=== PATIENT | male | born 1955 | race Caucasian/White ===

== ENCOUNTER 2016-06-01 07:33 | Emergency (ER) | payer OTHER ==
[~2016-06-01] VITALS: Ht 170.2 cm; Wt 130.6 kg
[~2016-06-01 07:33] MED LIST: KFL/250 PO; PRCUNK PO
[2016-06-01 07:37] VITALS: TEMP 36.7; Ht 170.2 cm; Wt 130.6 kg
--- NOTE | 2016-06-01 08:06 | EMERGENCY ROOM VISIT NOTE ---
History First contact with patient: 07:40 Chief Complaint: OTHER COMPLAINT Stated Complaint: LARGE BUMP UNDER ARM History of Present Illness The patient is a 61 year old male who presents to the Emergency Room with complaints of right axillary lump. The patient states he has had a lump in the right axilla for one year. He states that it started out as pea size and has occasionally gotten larger. He states that he saw his family doctor a year ago. The patient states that over the weekend it became significantly more swollen, red and tender. The patient rates his discomfort a 5/10. The patient states he has had sweats but denies any fevers. The patient also states that he has had ongoing low back pain, pain that radiates into the right leg, urinary incontinence and weakness in the right leg. He states that occasionally his right leg will give out. He states that those symptoms have been ongoing for the last 2 months. He has not had an MRI of his back. He has not had any further evaluation of his back or leg. Review of Systems A 10 system review of systems was completed with positives and pertinent negatives listed in the HPI. Past Medical/Surgical History Medical Problems: (1) Hypertension Social History Smoking Status: Never Smoker Alcohol Use: none Occupation Status: employed Current/Historical Medications Scheduled Cephalexin Monohydrate (Keflex), 500 MG PO QID Metoprolol Succ (Toprol Xl) (Toprol-Xl), 50 MG PO DAILY Prednisone (Prednisone Tab), 0 PO DAILY Sulfa/Trimethoprim (Bactrim Ds 800MG/160MG), 1 TAB PO BID Scheduled PRN Oxycodone/Acetaminophen 5MG/325MG (Percocet 5MG/325MG), 1 TAB PO Q4H PRN for Pain Allergies Coded Allergies: No Known Allergies (Unverified , 06/01/16) Physical Exam Vital Signs Date Time Temp Pulse Resp B/P Pulse Ox O2 Delivery O2 Flow Rate FiO2 06/01/16 11:28 75 18 145/92 95 06/01/16 11:01 75 18 145/92 95 Room Air 06/01/16 08:57 76 18 139/89 95 Room Air 06/01/16 07:37 36.7 91 18 168/99 97 Room Air Physical Exam VITALS: Vitals are noted on the nurse's note and reviewed by myself. Vital signs stable. The patient is afebrile. GENERAL: This is a 61-year-old male, in no acute distress, nondiaphoretic, well- developed well-nourished. SKIN: There is an area of erythema, fluctuance and pointing to the right axilla. It measures approximately 3 cm in diameter. There is tenderness to palpation. There is no tenting of the skin. Capillary reflex less than 2 seconds. HEAD: Normocephalic atraumatic. EARS: External ears are normal in appearance. EYES: Pupils equal round and reactive to light and accommodation. Conjunctivae without injection, sclerae without icterus. Extraocular movements intact. NOSE: Patent, turbinates without inflammation or discharge. MOUTH: Mucous membranes moist. Tonsils are not enlarged. Pharynx without erythema or exudate. Uvula midline. Airway patent. Tongue does not deviate. NECK: Supple without nuchal rigidity. No lymphadenopathy. No thyromegaly. Cervical spine is nontender. No JVD. HEART: Regular rate and rhythm without murmurs gallops or rubs. LUNGS: Clear to auscultation bilaterally without wheezes, rales or rhonchi. No retractions or accessory muscle use. MUSCULOSKELETAL: No muscle atrophy, erythema, or edema noted. Full range of motion without joint tenderness in all extremities. No tenderness to palpation. Normal gait. Strength 5/5 throughout. NEURO: Patient was alert and oriented to person place and time. Deep tendon reflexes 2+ throughout. No focal neurological deficits. Medical Decision & Procedures ER Provider Diagnostic Interpretation: [~ rep ct add3]] MRI OF THE LUMBAR SPINE WITHOUT CONTRAST CLINICAL HISTORY: Urinary incontinence. Right leg weakness. COMPARISON STUDY: No previous studies for comparison. TECHNIQUE: Utilizing a 1.5 Saritha magnet and dedicated coil, multiplanar, multiecho imaging of the lumbar spine was performed without IV contrast. FINDINGS: For purposes of numbering on this exam, the L5-S1 disc space is assigned to axial image 23 of 26. Vertebral body heights are maintained. There is no suspicious marrow replacement. A few T1 and T2 hyperintense lesions represent hemangiomas. The largest is a 1.6 cm L1 vertebral body lesion. There is no intracanalicular mass or fluid collection. The conus terminates at the upper L1 level. Paravertebral soft tissues are unremarkable. L1-2: The central canal and neural foramen are patent. L2-3: There is mild facet arthrosis. There is a small central annular tear. There is a tiny central disc protrusion with minimal inferior subligamentous administration. The central canal and neural foramen are patent. L3-4: There is facet arthrosis. There is minimal disc bulge with a tiny central disc protrusion. The central canal and neural foramen are patent. L4-5: There is disc bulge with a central annular tear. There is facet arthrosis. The central canal is patent. There is mild narrowing of the neural foramen. L5-S1: There is facet arthrosis. There is a disc bulge with tiny central disc protrusion. The central canal or patent is patent. There is severe right and moderate to severe left neural foraminal stenosis. IMPRESSION: 1. Mild multilevel degenerative disc disease with small disc bulges and small disc protrusions. No significant central canal stenosis. 2. Moderate to severe multilevel neural foraminal stenosis, most pronounced at the right L5-S1 neural foramen. [~ rep ct add3]] RIGHT AXILLARY ULTRASOUND CLINICAL HISTORY: Right axillary mass COMPARISON STUDY: No previous studies for comparison. FINDINGS: There is a 21 x 18 x 21 mm hypoechoic right axillary mass. There is mild surrounding hypervascularity. This lesion is essentially avascular. Likely diagnostic considerations include a necrotic lymph node versus an abscess. Clinical follow-up is advocated. Fine-needle aspiration biopsy could be obtained in follow-up as deemed clinically necessary. IMPRESSION: 21 x 18 x 21 mm hypoechoic right axillary mass. Diagnostic considerations include an abscess versus a necrotic lymph node. Clinical follow-up is advocated. Fine-needle aspiration biopsy could be obtained in follow-up as deemed clinically necessary Laboratory Results 06/01/16 09:48 Red Blood Count 5.29, Mean Corpuscular Volume 82.8, Mean Corpuscular Hemoglobin 28.5, Mean Corpuscular Hemoglobin Concent 34.5, Mean Platelet Volume 9.4, Neutrophils (%) (Auto) 64.0, Lymphocytes (%) (Auto) 21.9, Monocytes (%) (Auto) 10.7, Eosinophils (%) (Auto) 2.8, Basophils (%) (Auto) 0.5, Neutrophils # (Auto ) 5.85, Lymphocytes # (Auto) 2.00, Monocytes # (Auto) 0.98, Eosinophils # (Auto ) 0.26, Basophils # (Auto) 0.05 06/01/16 09:48 Test 06/01/16 09:48 White Blood Count 9.15 K/uL (4.8-10.8) Red Blood Count 5.29 M/uL (4.7-6.1) Hemoglobin 15.1 g/dL (14.0-18.0) Hematocrit 43.8 % (42-52) Mean Corpuscular Volume 82.8 fL (80-100) Mean Corpuscular Hemoglobin 28.5 pg (25-34) Mean Corpuscular Hemoglobin Concent 34.5 g/dl (32-36) Platelet Count 211 K/uL (130-400) Mean Platelet Volume 9.4 fL (7.4-10.4) Neutrophils (%) (Auto) 64.0 % Lymphocytes (%) (Auto) 21.9 % Monocytes (%) (Auto) 10.7 % Eosinophils (%) (Auto) 2.8 % Basophils (%) (Auto) 0.5 % Neutrophils # (Auto) 5.85 K/uL (1.4-6.5) Lymphocytes # (Auto) 2.00 K/uL (1.2-3.4) Monocytes # (Auto) 0.98 K/uL (0.11-0.59) Eosinophils # (Auto) 0.26 K/uL (0-0.5) Basophils # (Auto) 0.05 K/uL (0-0.2) RDW Standard Deviation 43.2 fL (36.4-46.3) RDW Coefficient of Variation 14.3 % (11.5-14.5) Immature Granulocyte % (Auto) 0.1 % Immature Granulocyte # (Auto) 0.01 K/uL (0.00-0.02) Anion Gap 9.0 mmol/L (3-11) Est Creatinine Clear Calc Drug Dose 108.8 ml/min Estimated GFR () 101.1 Estimated GFR (Non- 87.3 BUN/Creatinine Ratio 19.1 (10-20) Calcium Level 8.1 mg/dl (8.5-10.1) Total Bilirubin 0.5 mg/dl (0.2-1) Aspartate Amino Transf (AST/SGOT) 18 U/L (15-37) Alanine Aminotransferase (ALT/SGPT) 25 U/L (12-78) Alkaline Phosphatase 69 U/L (45-117) Total Protein 7.0 gm/dl (6.4-8.2) Albumin 3.3 gm/dl (3.4-5.0) Globulin 3.7 gm/dl (2.5-4.0) Albumin/Globulin Ratio 0.9 (0.9-2) Medications Administered Medications (Trade) Dose Ordered Sig/Stefanie Route Start Time Stop Time Status Last Admin Dose Admin Dexamethasone Sodium Phosphate (Decadron Inj) 10 mg NOW ONCE IM 06/01/16 11:00 06/01/16 11:01 DC 06/01/16 11:15 10 MG Procedure I examined the patient. After saline and Betadine cleansing and 3 mL of 1% buffered lidocaine anesthesia, the abscess was incised with a number 11 scalpel blade. A small amount of purulent material was expressed. A swab was obtained for culture. The patient tolerated the procedure well. ED Course The patient was seen and examined. Previous visits were reviewed. The patient does not have a fever or leukocytosis. He does not have any significant electrolyte abnormalities. The patient presents with a lump to the right axilla. It is concerning the patient states the lump has been there for the last 1 year and has steadily gotten larger. He states that over the weekend it has now become red, swollen and tender. It has not drained. An ultrasound of the area was obtained. This reveals a possible necrotic lymph node or possibly an abscess. A fine-needle aspiration could be considered. The area was opened minimally as above. There is a small amount of purulent drainage. The wound was not explored deeply and was not packed. A culture was obtained. The patient was advised to see his family doctor for further evaluation and management and for possible scheduling of fine-needle aspiration. He was placed on Bactrim and Keflex and given a prescription for pain medication. Additionally, the patient has been complaining of urinary incontinence, right leg pain and weakness and low back pain. The patient was neurovascularly and neurologically intact on exam. However, given the symptoms and MRI of the lumbar spine was obtained. The patient does have spinal stenosis. There is no obvious cauda equina. The patient was given IM Decadron and a prescription for prednisone. He should contact his family doctor to schedule a follow-up appointment for further evaluation and management of his low back pain. The patient was also seen and examined by who agrees with the assessment and treatment plan. The patient should return with any worsening symptoms Medical Decision The differential diagnosis includes lymphoma, necrotic lymph node, cellulitis, abscess, hidradenitis suppurativa, Lumbar strain, degenerative disc disease, spondylolisthesis, herniated disc, spinal stenosis, osteoporosis, fracture, cauda equina syndrome, neoplasm, infection, inflammatory arthritis, among others. [place] Drug Monitoring Program Search Results: patient reviewed within database, no issues identified Impression Primary Impression: Axillary abscess Additional Impressions: Lumbar radiculopathy Back pain Departure Information Dispostion Home / Self-Care Condition GOOD Prescriptions Oxycodone/Acetaminophen 5MG/325MG (PERCOCET 5MG/325MG) Tab 1 TAB PO Q4H Y for Pain, #18 TAB For Initial Treatment Prov: Sania Gomez PA-C 06/01/16 Cephalexin Monohydrate (KEFLEX) 500 Mg Cap 500 MG PO QID for 10 Days, #40 CAP Prov: Sania Gomez PA-C 06/01/16 Sulfa/Trimethoprim (Bactrim Ds 800MG/160MG) Tab 1 TAB PO BID for 10 Days, #20 TAB Prov: Sania Gomez PA-C 06/01/16 Prednisone (Prednisone Tab) 20 Mg Tab 0 PO DAILY, #18 TAB 3 DAILY FOR 3 DAYS, THEN 2 DAILY FOR 3 DAYS, THEN 1 DAILY FOR 3 DAYS. Prov: Sania Gomez PA-C 06/01/16 Referrals Justin Nieto M.D. ([facility]) (PCP) Patient Instructions Back Pain - [facility], ED Abscess IandD, My [facility] Additional Instructions Prednisone as prescribed to help with inflammation in the low back Percocet 1-2 tablet every 4-6 hours as needed for worse pain. No driving or alcohol use with Percocet and do not take with Tylenol. Contact your family doctor to schedule a follow-up appointment for further evaluation and management of the back pain, leg pain and urinary symptoms Bactrim and Keflex as prescribed, until finished for the infection in the right armpit Return or recheck with your family doctor in 24-48 hours for a recheck You may need a fine needle aspiration biopsy if the lump persists in the right armpit Return sooner with any concerning or worsening symptoms Problem Qualifiers
--- NOTE | 2016-06-01 08:42 | DIAGNOSTIC IMAGING REPORT ---
RIGHT AXILLARY ULTRASOUND CLINICAL HISTORY: Right axillary mass COMPARISON STUDY: No previous studies for comparison. FINDINGS: There is a 21 x 18 x 21 mm hypoechoic right axillary mass. There is mild surrounding hypervascularity. This lesion is essentially avascular. Likely diagnostic considerations include a necrotic lymph node versus an abscess. Clinical follow-up is advocated. Fine-needle aspiration biopsy could be obtained in follow-up as deemed clinically necessary. IMPRESSION: 21 x 18 x 21 mm hypoechoic right axillary mass. Diagnostic considerations include an abscess versus a necrotic lymph node. Clinical follow-up is advocated. Fine-needle aspiration biopsy could be obtained in follow-up as deemed clinically necessary Electronically signed by: Nadir Rose M.D. 06/01/2016 8:40 AM Dictated Date/Time: 06/01/2016 8:38 AM
--- NOTE | 2016-06-01 10:02 | DIAGNOSTIC IMAGING REPORT ---
MRI OF THE LUMBAR SPINE WITHOUT CONTRAST CLINICAL HISTORY: Urinary incontinence. Right leg weakness. COMPARISON STUDY: No previous studies for comparison. TECHNIQUE: Utilizing a 1.5 Saritha magnet and dedicated coil, multiplanar, multiecho imaging of the lumbar spine was performed without IV contrast. FINDINGS: For purposes of numbering on this exam, the L5-S1 disc space is assigned to axial image 23 of 26. Vertebral body heights are maintained. There is no suspicious marrow replacement. A few T1 and T2 hyperintense lesions represent hemangiomas. The largest is a 1.6 cm L1 vertebral body lesion. There is no intracanalicular mass or fluid collection. The conus terminates at the upper L1 level. Paravertebral soft tissues are unremarkable. L1-2: The central canal and neural foramen are patent. L2-3: There is mild facet arthrosis. There is a small central annular tear. There is a tiny central disc protrusion with minimal inferior subligamentous administration. The central canal and neural foramen are patent. L3-4: There is facet arthrosis. There is minimal disc bulge with a tiny central disc protrusion. The central canal and neural foramen are patent. L4-5: There is disc bulge with a central annular tear. There is facet arthrosis. The central canal is patent. There is mild narrowing of the neural foramen. L5-S1: There is facet arthrosis. There is a disc bulge with tiny central disc protrusion. The central canal or patent is patent. There is severe right and moderate to severe left neural foraminal stenosis. IMPRESSION: 1. Mild multilevel degenerative disc disease with small disc bulges and small disc protrusions. No significant central canal stenosis. 2. Moderate to severe multilevel neural foraminal stenosis, most pronounced at the right L5-S1 neural foramen. Electronically signed by: Omi De Leon M.D. 06/01/2016 10:01 AM Dictated Date/Time: 06/01/2016 9:41 AM
[2016-06-01 10:11] LABS: BASO % 0.5 %; BASO ABS # 0.05 K/uL (0-0.2); COMPLETE YES; EOS % 2.8 %; HEMATOCRIT 43.8 % (42-52); IG% 0.1 %; LYMPH % 21.9 %; MEAN CELL VOLUME 82.8 fL (80-100); MEAN CORPUSCULAR HEMOGLOBIN 28.5 pg (25-34); MEAN CORPUSCULAR HGB CONC 34.5 g/dl (32-36); MEAN PLATELET VOLUME 9.4 fL (7.4-10.4); MONO % 10.7 %; PLATELET COUNT 211 K/uL (130-400); RED BLOOD COUNT 5.29 M/uL (4.7-6.1); WHITE BLOOD COUNT 9.15 K/uL (4.8-10.8)
[2016-06-01] MEDS ORDERED: XYLOCAINE 1%/SOD BICARB 20 ML VIAL INFIL ONE (10:15)
--- NOTE | 2016-06-01 10:16 | EMERGENCY ROOM VISIT NOTE ---
ED Visit Note First contact with patient: 07:40 61-year-old male was swelling in his right axilla was fully evaluated by Valeria Gomez PA-C. Please see her note. I also independently evaluated the patient. This appears to be inflamed lymph nodes. This he may have hiraadenitis suppurtiva. A small incision was made cultures were obtained. The patient was placed on antibiotics. Patient will require follow-up with his family physician. The patient may need a biopsy if this does not resolve the problem.
[2016-06-01 10:28] LABS: BUN/CREATININE RATIO 19.1 (10-20); CALCIUM 8.1 mg/dl (8.5-10.1); CREATININE 0.95 mg/dl (0.60-1.40)
[2016-06-01 10:30] LABS: ALB/GLOB RATIO 0.9 (0.9-2)
[2016-06-01] MEDS ORDERED: PRED20TA2 PO (10:59)
[2016-06-01] MEDS ORDERED: OXYC-57 PO (10:59)
[2016-06-01] MEDS ORDERED: SULF800T23 PO (10:59)
[2016-06-01] MEDS ORDERED: CEPH500C2 PO (10:59)
[2016-06-01] MEDS ORDERED: DEXAMETHASONE SOD INJ 10 MG/ML VIAL IM ONE (11:00)
[2016-06-01 11:28] VITALS: BP 145/92; PULSE 75; O2SAT 95
[2016-10-14] MEDS ORDERED: METO50TA7 PO (10:55)
== END 2016-06-01 11:28 | disposition home or self-care (01) ==
LOC: C.EDB 07:35 → C.EDA 11:28
DX: L02.411 Cutaneous abscess of right axilla (principal); M54.16 Radiculopathy, lumbar region; M54.9 Dorsalgia, unspecified; I10 Essential (primary) hypertension

== ENCOUNTER 2016-10-14 14:08 | Emergency (ER) | payer OTHER ==
[~2016-10-14] VITALS: Ht 170.2 cm; Wt 120.0 kg
[~2016-10-14 14:08] MED LIST changes: -KFL/250 PO; +METO50TA7 PO; +OXYC-57 PO; -PRCUNK PO; +PRED20TA2 PO
[2016-10-14 14:12] VITALS: TEMP 36.6; Ht 170.2 cm; Wt 120.0 kg
[2016-10-14] MEDS ORDERED: ACET-1256 PO (15:22)
[2016-10-14] MEDS ORDERED: IBUP-103 PO (15:22)
[2016-10-14] MEDS ORDERED: NAPR1TAB9 PO (15:22)
--- NOTE | 2016-10-14 15:40 | EMERGENCY ROOM VISIT NOTE ---
History First contact with patient: 15:03 Chief Complaint: LEG PAIN,LEG INJURY Stated Complaint: SWELLING/PAIN IN LWR RT LEG History of Present Illness The patient is a 61 year old male who presents to the Emergency Room with complaints of right leg pain, swelling, weakness. Patient states several months ago he started to notice some weakness in his right leg, states he was evaluated in the emergency department for this and had an MRI of his lower back that showed some "problems." Patient states over the past month he has developed severe pain from his knee to his foot in the front of his [place]. The pain is so severe that he has difficulty walking on the leg at times. Patient also states the weakness in his leg has become more severe that he is unable to lift the leg to get in and out of a vehicle or go up and down stairs and has to lead with his left leg. For the past week he has noticed a numb/tingling feeling in the sole of his right foot, especially the heel that is also new. He does note increased urgency and occasional urinary incontinence which has been going on for several months. He denies any back pain. He denies any posterior calf or knee pain. He states he developed some swelling in the leg throughout the day, that goes down if he elevates the leg. He denies any past medical history and does not take any medications on a daily basis, but does note a history of an irregular heartbeat. He denies any headaches, vision changes, neck or back pain, chest pain, shortness of breath, abdominal pain, vomiting or diarrhea, dysuria or hematuria. Review of Systems A complete 10 point review of systems was reviewed with the patient with pertinent positives and negatives as per history of present illness. All else were negative. Past Medical/Surgical History Medical Problems: (1) Hypertension Social History Smoking Status: Never Smoker Alcohol Use: none Occupation Status: employed Current/Historical Medications Scheduled Acetaminophen (Tylenol), 1 TAB PO Q8 Methylprednisolone (Medrol Dosepak), 0 PO DAILY Metoprolol Succ (Toprol Xl) (Toprol-Xl), 50 MG PO DAILY Scheduled PRN Hydrocodone/Acetaminophen 5MG/325MG (Suffern 5MG/325MG), 1-2 TABLET PO Q6H PRN for Pain Ibuprofen Tab (Advil), 200 MG PO TID PRN for Pain Naproxen (Aleve), 440 MG PO TID PRN for Pain Allergies Coded Allergies: No Known Allergies (Unverified , 06/01/16) Physical Exam Vital Signs Date Time Temp Pulse Resp B/P (MAP) Pulse Ox O2 Delivery O2 Flow Rate FiO2 10/14/16 20:01 65 18 177/107 97 10/14/16 18:40 71 20 151/101 97 Room Air 10/14/16 16:40 72 20 139/86 96 Room Air 10/14/16 14:12 36.6 72 20 150/97 93 Room Air Physical Exam CONSTITUTIONAL: No acute distress. Well appearing and well nourished. Alert and oriented X 4 with normal affect. HEENT: Normocephalic, atraumatic. Pupils equal, round and reactive to light, EOMI. TMs normal. Pharynx normal. Moist mucous membranes. NECK: Supple, full active range of motion without discomfort. RESPIRATORY: Clear to auscultation bilaterally with no wheezing, crackles, rhonchi or stridor. Equal expansion bilaterally. CARDIOVASCULAR: Regular rate and rhythm with no murmurs, rubs or gallops. Normal peripheral perfusion. No edema. GASTROINTESTINAL: Soft, nontender, nondistended. Bowel sounds present in all quadrants. MUSCULOSKELETAL: No muscle atrophy, erythema, or edema noted of the back. There is no tenderness over the lumbar spinous processes. There is no tenderness over the paraspinous muscles of the thoracic or lumbar region. There are no muscle spasms present. The patient is slow to move around with maximum tenderness with movement of the right leg. Positive right straight leg raise test. INTEGUMENTARY: No rash or other significant dermatologic conditions noted. NEUROLOGIC: Cranial nerves II-XII grossly intact. Diminished sensation to light and sharp touch noted on the plantar aspect of the right foot. Patient notes subjective diminished sensation of the right anterior and lateral calf compared to the left. There is 4/5 strength noted with plantar and dorsiflexion of the foot, 4/5 strength in the right thigh with hip flexion, 3/5 strength in the right lower extremity lifting off the bed against gravity. 5/5 strength noted in all aspects of the left lower extremity. Deep tendon reflexes 1+ in the right lower extremity and 2+ in the left lower extremity. Wide stance gait noted with ambulation, but no shuffling gait noted. Dorsalis pedis pulse 2+ bilaterally. Medical Decision & Procedures ER Provider Diagnostic Interpretation: MRI OF THE LUMBAR SPINE WITHOUT IV CONTRAST CLINICAL HISTORY: Low back pain. Right leg weakness and numbness. COMPARISON STUDY: MRI of lumbar spine dated 06/01/2016. TECHNIQUE: MRI of the lumbar spine is performed utilizing various T1 and T2-weighted sequences in the axial and sagittal planes. IV contrast was not administered for this examination. FINDINGS: Lumbar spine: Vertebral body height and alignment are maintained throughout the lumbar spine. Normal marrow signal intensity is preserved throughout the visualized bony structures. Hemangiomas are again seen in the bodies of L1 and L3. Tiny anterior osteophytes are seen throughout. The transverse and spinous processes appear intact. There is no evidence of spondylolysis. Intervertebral discs: There is degenerative disc desiccation seen throughout the lumbar spine. Moderate loss of height is seen at L5-S1. Only mild narrowing is seen at the remaining lumbar levels. Spinal cord: The partially imaged spinal cord is normal in morphology and signal intensity. The conus medullaris terminates at the level of T12-L1. The nerve roots of the cauda equina are normal in morphology. L1-L2: There is a small posterior disc bulge with annular fissure. There is no significant acquired compromise of the central canal. The neural foramina are patent. L2-L3: There is a posterior disc bulge with annular fissure. In conjunction with hypertrophy of the ligamentum flavum there is mild acquired compromise the central canal at this level with a minimum AP diameter of 7 mm. Central canal narrowing is largely on a congenital basis. There is bilateral subarticular stenosis with possible impingement on the exiting bilateral L2 nerve roots. The neural foramina are clear. L3-L4: There is a posterior disc bulge eccentric to the right with annular fissure. Narrowing of the central canal is largely on a congenital basis. There is only minimal acquired compromise the central canal and the minimum AP diameter measures 8 mm. There is right-sided subarticular stenosis with possible impingement on the exiting right L3 nerve root. The disc bulge also likely abuts the transiting right L4 nerve root. Facet arthropathy is of no consequence. The neural foramina are patent. L4-L5: There is a large posterior disc bulge with annular fissure. In conjunction with hypertrophy of the ligamentum flavum there is [id number] central canal stenosis at this level. The minimum AP diameter measures 8.5 mm. There is bilateral subarticular stenosis, right greater than left with possible impingement on the exiting bilateral L4 nerve roots. Facet arthropathy causes mild bilateral neural foraminal stenosis. L5-S1: There is a posterior disc bulge eccentric to the right with annular fissure. There is no significant acquired compromise of the central canal at this level. The disc bulge causes right-sided subarticular stenosis and impinges on the exiting right L5 and the transiting right S1 nerve roots. Facet arthropathy causes moderate bilateral neural foraminal stenosis. Sacrum: The visualized sacrum is normal in morphology and signal intensity. Soft tissues: The paraspinous soft tissues are within normal limits. The partially imaged retroperitoneal structures are grossly unremarkable but in completely evaluated. IMPRESSION: 1. Multilevel lumbosacral spondylosis with mild multilevel acquired compromise of the central canal at C2 above. See discussion for detailed level analysis. Findings are similar to to minimally progressed from the 06/01/2016 examination. 2. No destructive bony lesion is seen. Laboratory Results 10/14/16 15:36 Red Blood Count 5.33, Mean Corpuscular Volume 83.3, Mean Corpuscular Hemoglobin 28.9, Mean Corpuscular Hemoglobin Concent 34.7, Mean Platelet Volume 9.6, Neutrophils (%) (Auto) 55.5, Lymphocytes (%) (Auto) 34.0, Monocytes (%) (Auto) 7.5, Eosinophils (%) (Auto) 2.4, Basophils (%) (Auto) 0.6, Neutrophils # (Auto) 4.71, Lymphocytes # (Auto) 2.88, Monocytes # (Auto) 0.64, Eosinophils # (Auto) 0.20, Basophils # (Auto) 0.05 10/14/16 15:36 Test 10/14/16 15:36 White Blood Count 8.48 K/uL (4.8-10.8) Red Blood Count 5.33 M/uL (4.7-6.1) Hemoglobin 15.4 g/dL (14.0-18.0) Hematocrit 44.4 % (42-52) Mean Corpuscular Volume 83.3 fL (80-100) Mean Corpuscular Hemoglobin 28.9 pg (25-34) Mean Corpuscular Hemoglobin Concent 34.7 g/dl (32-36) Platelet Count 238 K/uL (130-400) Mean Platelet Volume 9.6 fL (7.4-10.4) Neutrophils (%) (Auto) 55.5 % Lymphocytes (%) (Auto) 34.0 % Monocytes (%) (Auto) 7.5 % Eosinophils (%) (Auto) 2.4 % Basophils (%) (Auto) 0.6 % Neutrophils # (Auto) 4.71 K/uL (1.4-6.5) Lymphocytes # (Auto) 2.88 K/uL (1.2-3.4) Monocytes # (Auto) 0.64 K/uL (0.11-0.59) Eosinophils # (Auto) 0.20 K/uL (0-0.5) Basophils # (Auto) 0.05 K/uL (0-0.2) RDW Standard Deviation 41.4 fL (36.4-46.3) RDW Coefficient of Variation 13.7 % (11.5-14.5) Immature Granulocyte % (Auto) 0.0 % Immature Granulocyte # (Auto) 0.00 K/uL (0.00-0.02) Anion Gap 5.0 mmol/L (3-11) Est Creatinine Clear Calc Drug Dose 89.7 ml/min Estimated GFR () 84.7 Estimated GFR (Non- 73.1 BUN/Creatinine Ratio 19.0 (10-20) Calcium Level 8.7 mg/dl (8.5-10.1) Medical Decision CC: Patient presenting with complaint of right leg pain, numbness, swelling Interpretation of Labs: No leukocytosis, no anemia, no significant electrolyte abnormalities, normal renal function. Differential Diagnosis: Includes, but not limited to lumbar radiculopathy, spondylosis, sciatica, cauda equina syndrome, DVT Medication Reconciliation: I attest that I have personally reviewed the patient' s current medication list. Vital signs review: I reviewed the patient's vital signs and interpret them as follows: T: Afebrile; BP: Hypertensive; HR: Within normal limits; RR: Within normal limits; Pulse Ox: Within normal limits on room air. Blood pressure screening: The patient was found to have an elevated blood pressure and was referred to their primary doctor for recheck and further treatment. Summary: Patient was evaluated at bedside, history of physical exam performed. He is alert and in no acute distress. He has no tenderness to palpation of the posterior calf or knee. He does have pain in the anterior and lateral calf that is elicited with certain movements of the leg straight leg raise. Patient has notable weakness in the right leg compared to the left, with diminished sensation on exam and decreased patellar and Achilles deep tendon reflexes. While patient's symptoms seem somewhat chronic in nature, he does seem to have an acute worsening of his symptoms over the past 1-2 weeks. Orders were placed at bedside for labs, urinalysis, venous duplex of the lower extremity to rule out DVT, and MRI of the L-spine to evaluate for lumbosacral disease and rule out cauda equina or other urgent surgical process. Patient discussed with Dr. Fischer, who agrees with my assessment and plan. Labs reviewed as above, unremarkable. DVT study is negative. MRI of the L-spine reviewed, no emergent surgical issues noted, however does appear to have progression of his disease compared to previous MRI 05/2016. I discussed all results with the patient. I provided prescriptions for Medrol Dosepak and short course of narcotic pain medication to manage patient's symptoms. I provided patient with contact information for ortho-spine, and encouraged him to schedule an appointment for follow-up. Patient discharged home in stable condition and ambulatory. Impression Primary Impression: Lumbosacral spondylosis with radiculopathy Departure Information Dispostion Home / Self-Care Condition GOOD Prescriptions Hydrocodone/Acetaminophen 5MG/325MG (Suffern 5MG/325MG) Tab 1-2 TABLET PO Q6H Y for Pain for 3 Days, #24 TAB For Initial Treatment Prov: Keira Butler CRNP 10/14/16 Methylprednisolone (MEDROL DOSEPAK) 4 Mg Freeman 0 PO DAILY, #1 PKT Prov: Keira Butler CRNP 10/14/16 Referrals No Doctor, Assigned (PCP) Joaquin Joya D.O. Patient Instructions Lumbar Radiculopathy, My [facility] Additional Instructions Follow-up with your PCP in the next few days for continued management of your pain symptoms. Suffern 1-2 tablets every 6 hours as needed for severe pain. Do not drive, drink alcohol, or operate machinery while you're taking this medication. Keep in mind that this medication contains Tylenol. Tylenol 1,000mg every 8 hours as needed for pain. Do not exceed 3,000mg in 24 hours. Medrol dose pack as directed. This is to help reduce inflammation around the nerves that are causing your pain. Avoid NSAIDs such as ibuprofen, Aleve, Advil while you're taking steroids, as this can increase the chance of stomach upset. Call the orthopedic-spine clinic to set up an appointment to address the issues in your lumbar spine. Please return to the emergency Department for significantly worsening symptoms, including severe worsening pain, complete numbness or weakness of your leg, urinary incontinence or if you're unable to urinate for more than 12 hours, you develop fevers, or for any other concerns.
[2016-10-14 15:49] LABS: BASO % 0.6 %; BASO ABS # 0.05 K/uL (0-0.2); COMPLETE YES; EOS % 2.4 %; HEMATOCRIT 44.4 % (42-52); LYMPH ABS # 2.88 K/uL (1.2-3.4); MEAN CELL VOLUME 83.3 fL (80-100); MEAN CORPUSCULAR HEMOGLOBIN 28.9 pg (25-34); MEAN CORPUSCULAR HGB CONC 34.7 g/dl (32-36); MEAN PLATELET VOLUME 9.6 fL (7.4-10.4); MONO % 7.5 %; NEUT % 55.5 %; PLATELET COUNT 238 K/uL (130-400); RED BLOOD COUNT 5.33 M/uL (4.7-6.1); WHITE BLOOD COUNT 8.48 K/uL (4.8-10.8)
[2016-10-14 16:22] LABS: CALCIUM 8.7 mg/dl (8.5-10.1); CREATININE 1.1 mg/dl (0.60-1.40); POTASSIUM 3.9 mmol/L (3.5-5.1)
--- NOTE | 2016-10-14 17:01 | DIAGNOSTIC IMAGING REPORT ---
MRI OF THE LUMBAR SPINE WITHOUT IV CONTRAST CLINICAL HISTORY: Low back pain. Right leg weakness and numbness. COMPARISON STUDY: MRI of lumbar spine dated 06/01/2016. TECHNIQUE: MRI of the lumbar spine is performed utilizing various T1 and T2-weighted sequences in the axial and sagittal planes. IV contrast was not administered for this examination. FINDINGS: Lumbar spine: Vertebral body height and alignment are maintained throughout the lumbar spine. Normal marrow signal intensity is preserved throughout the visualized bony structures. Hemangiomas are again seen in the bodies of L1 and L3. Tiny anterior osteophytes are seen throughout. The transverse and spinous processes appear intact. There is no evidence of spondylolysis. Intervertebral discs: There is degenerative disc desiccation seen throughout the lumbar spine. Moderate loss of height is seen at L5-S1. Only mild narrowing is seen at the remaining lumbar levels. Spinal cord: The partially imaged spinal cord is normal in morphology and signal intensity. The conus medullaris terminates at the level of T12-L1. The nerve roots of the cauda equina are normal in morphology. L1-L2: There is a small posterior disc bulge with annular fissure. There is no significant acquired compromise of the central canal. The neural foramina are patent. L2-L3: There is a posterior disc bulge with annular fissure. In conjunction with hypertrophy of the ligamentum flavum there is mild acquired compromise the central canal at this level with a minimum AP diameter of 7 mm. Central canal narrowing is largely on a congenital basis. There is bilateral subarticular stenosis with possible impingement on the exiting bilateral L2 nerve roots. The neural foramina are clear. L3-L4: There is a posterior disc bulge eccentric to the right with annular fissure. Narrowing of the central canal is largely on a congenital basis. There is only minimal acquired compromise the central canal and the minimum AP diameter measures 8 mm. There is right-sided subarticular stenosis with possible impingement on the exiting right L3 nerve root. The disc bulge also likely abuts the transiting right L4 nerve root. Facet arthropathy is of no consequence. The neural foramina are patent. L4-L5: There is a large posterior disc bulge with annular fissure. In conjunction with hypertrophy of the ligamentum flavum there is [id number] central canal stenosis at this level. The minimum AP diameter measures 8.5 mm. There is bilateral subarticular stenosis, right greater than left with possible impingement on the exiting bilateral L4 nerve roots. Facet arthropathy causes mild bilateral neural foraminal stenosis. L5-S1: There is a posterior disc bulge eccentric to the right with annular fissure. There is no significant acquired compromise of the central canal at this level. The disc bulge causes right-sided subarticular stenosis and impinges on the exiting right L5 and the transiting right S1 nerve roots. Facet arthropathy causes moderate bilateral neural foraminal stenosis. Sacrum: The visualized sacrum is normal in morphology and signal intensity. Soft tissues: The paraspinous soft tissues are within normal limits. The partially imaged retroperitoneal structures are grossly unremarkable but in completely evaluated. IMPRESSION: 1. Multilevel lumbosacral spondylosis with mild multilevel acquired compromise of the central canal at C2 above. See discussion for detailed level analysis. Findings are similar to to minimally progressed from the 06/01/2016 examination. 2. No destructive bony lesion is seen. Electronically signed by: Jonah Rizo M.D. 10/14/2016 5:00 PM Dictated Date/Time: 10/14/2016 4:54 PM
--- NOTE | 2016-10-14 18:08 | DIAGNOSTIC IMAGING REPORT ---
RIGHT LOWER EXTREMITY VENOUS DOPPLER CLINICAL HISTORY: Right leg pain and swelling. COMPARISON STUDY: No previous studies for comparison. TECHNIQUE: Sonography of the deep venous system of the right lower extremity was performed. Compression and augmentation were evaluated. FINDINGS: The common femoral, superficial femoral and popliteal veins were compressible. Augmentation was normal. Flow was shown within the deep calf vessels. IMPRESSION: No evidence of deep venous thrombus within the right lower extremity. Electronically signed by: Omi De Leon M.D. 10/14/2016 6:07 PM Dictated Date/Time: 10/14/2016 6:07 PM
[2016-10-14] MEDS ORDERED: METH4PAK PO (19:28)
[2016-10-14] MEDS ORDERED: HYDR-5688 PO (19:46)
[2016-10-14 20:01] VITALS: BP 177/107; PULSE 65; O2SAT 97
== END 2016-10-14 20:03 | disposition home or self-care (01) ==
LOC: C.EDB 14:10
DX: M47.27 Other spondylosis with radiculopathy, lumbosacral region (principal); I10 Essential (primary) hypertension

== ENCOUNTER → 2017-06-29 | Outpatient (CLI) | payer OTHER ==
[~2017-06-29] MED LIST changes: +ACET-1256 PO; +IBUP-103 PO; -METO50TA7 PO; +METO50TA8 PO; +NAPR1TAB9 PO; -OXYC-57 PO; -PRED20TA2 PO
--- NOTE | 2017-06-29 14:16 | DIAGNOSTIC IMAGING REPORT ---
LUMBAR SPINE W/O CONTRAST CLINICAL HISTORY: 62 years-old Male with M54.5. Chronic low back pain with radiation into the right hip and right leg COMPARISON: Lumbar spine MRI 10/14/2016 TECHNIQUE: Multiplanar, multi sequence MRI of the lumbar spine was performed without intravenous contrast. 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 No aortic aneurysm or adenopathy identified. External renal pelves noted bilaterally within the kidneys. Mild convex left curvature of the mid lumbar spine of approximately 60 degrees measured from T12-L4. Focal areas of increased T1 and T2 signal involving the L1 and L3 vertebral bodies redemonstrated measuring 1.7 and 1.1 cm respectively, unchanged suggesting focal fatty marrow or hemangiomas. Signal within the imaged thoracic spinal cord is unremarkable. Conus medullaris terminates at the L1 level. The cauda equina are unremarkable. The axial sequences are mildly motion degraded. Mildly decreased T1 signal throughout the bone marrow is unchanged. T12-L1: Mild intervertebral disc space narrowing with posterior spondylitic spurring and mild facet arthrosis. No central canal or foraminal narrowing. Unchanged. L1-L2: Mild to moderate intervertebral disc space narrowing with posterior spondylitic spurring and small circumferential disc bulge with moderate facet arthrosis and ligamentum flavum thickening. There is flattening of the ventral thecal sac without significant central canal or foraminal stenosis. Unchanged. L2-L3: Moderate intervertebral disc space narrowing with posterior spondylitic spurring and moderate sized circumferential disc bulge. Moderate facet arthrosis with ligamentum flavum thickening and trace left facet effusion. AP dimension of the thecal sac is narrowed to 8 mm resulting in mild to moderate central canal, moderate left and mild right foraminal narrowing. Degenerative changes may have mildly progressed. L3-L4: Moderate intervertebral disc space narrowing with posterior spondylitic spurring and moderate circumferential disc bulge. Mild to moderate facet arthrosis with ligamentum flavum thickening. Findings cause mild central canal and mild bilateral foraminal stenosis. No significant change from comparison. L4-L5: Intervertebral disc space narrowing with moderate circumferential disc bulge and posterior annular fissure. Moderate facet arthrosis with ligamentum flavum thickening. These findings narrow the thecal sac to 7 mm in AP dimension resulting in moderate central canal and moderate to severe bilateral foraminal stenosis is findings have slightly progressed from comparison. L5-S1: Intervertebral disc space narrowing with posterior spondylitic spurring and posterior disc bulge with facet arthrosis and ligamentum flavum thickening. There is flattening of the ventral thecal sac without significant central canal stenosis. There is severe left and moderate right foraminal narrowing. IMPRESSION: 1. Multilevel discogenic degenerative changes, spondylitic spurring and facet arthrosis as discussed in detail above. 2. At L4-L5 there is moderate central canal and moderate to severe bilateral foraminal narrowing. 3. At L5-S1 there is severe left and moderate right foraminal narrowing secondary to discogenic degenerative changes, facet arthrosis and ligamentum flavum thickening. 4. No acute fracture, subluxation or focal bone marrow edema. 5. Mild levoscoliosis. The above report was generated using voice recognition software. It may contain grammatical, syntax or spelling errors. Electronically signed by: Dilip Wilson M.D. 06/29/2017 2:15 PM Dictated Date/Time: 06/29/2017 2:03 PM
== END | disposition home or self-care (01) ==
LOC: C.MRIBC 13:00
PROVIDERS: ATTEND Orthopaedic Surgery Orthopaedic Surgery of the Spine
DX: M54.5 Low back pain (principal)